=== PATIENT | male | born 1955 | race Caucasian/White ===

== ENCOUNTER 2016-12-03 18:25 | Inpatient (IN) | payer MEDICAID, OTHER ==
[~2016-12-03] VITALS: Ht 177.8 cm; Wt 81.2 kg
[~2016-12-03 18:25] MED LIST: FLUO20CA25 PO; KLO5T PO; OXYC-284 PO
[2016-12-03 18:27] VITALS: BP 134/97; PULSE 70; RESP 20; O2SAT 94
--- NOTE | 2016-12-03 19:09 | ED.REPORT ---
HPI-Psychiatric Illness Date of Service Dec 03, 2016 ED Provider: Sharif Valdez MD A 61 year old male with a medical history including depression, suicidal ideation, diverticulitis, and SBO s/p previous psychiatric admission presents to the ED with suicidal ideation onset one month ago, worsening today. The patient reports a plan to slit his wrists. He attributes a portion of his suicidality to anxiety over problems with his former spouse and stress about an upcoming move. The patient denies other symptoms. He has a previous suicide attempt via asphyxiation in his car. The patient denies recent drug or alcohol use. Nursing Notes Stated Complaint: SUICIDAL Chief Complaint: Psychiatric Complaint Nursing Notes Reviewed: Yes Allergies: Coded Allergies: No Known Allergies (Verified Allergy, Unknown, 05/14/15) Scheduled Fluoxetine (Fluoxetine) 20 Mg Capsule 20 MG PO DAILY Scheduled PRN Clonazepam (Clonazepam) 0.5 Mg Tablet 0.5 MG PO BID PRN PRN For Anxiety Oxycodone HCl/Acetaminophen 5-325 (Percocet 5-325) 1 Each Tablet 1 TABLET PO q6 PRN PRN For Pain General Time Seen by MD: 18:41 Chief Complaint Suicidal ideation Hx Obtained From: Patient Arrived By: Walk-in Onset Occurred: More than a week ago... (One month ago, worsening today) Symptom Duration: Since onset Severity: Current: No pain currently Severity: Maximum: No pain Pertinent Negative: Pt denies other symptoms Pertinent Negative: Relieved by nothing Related History: Reports: Depression, Prior suicide attempt(s) Immunizations: Unknown Recent Healthcare: No recent doctor visit Similar Sx Previous: Yes Risk-Psychiatric Illness Suicide Risk Stratification RF Statements: Risk factors reviewed Past Medical History Past Medical History Depression Suicide attempt by asphyxiation in car Diverticulitis SBO Chronic back pain Past Surgical History Inguinal Hernia surgery Knee surgery in 1995 Sinus Surgery Family History Diabetes Dad of a [place] at 82 Smoking History Current Every Day Smoker, Light Tobacco Smoker Social History Alcohol Use: Denies alcohol use Drug Use: Denies drug use Other Social History: Ambulatory Status Independent Review of Systems Constitutional: Denies: Fever Respiratory: Denies: Non-productive cough, Shortness of breath GI: Denies: Diarrhea, Vomiting Psychiatric: Reports: Anxiety, Stress, Suicidal ideation Complete sys rev & neg: except as marked. Physical Exam Initial Vital Signs Vital Signs (First) Date Time Temp Pulse Resp B/P Pulse Ox O2 Delivery O2 Flow Rate FiO2 12/03/16 18:27 36.9 70 20 134/97 94 Room Air Head / Eyes: Atraumatic, Normocephalic ENT: Conjunctiva normal, No scleral icterus Extremities: Vascular intact, Neuro intact, No swelling Skin: Warm, Dry, No cyanosis General/Constitutional: Awake, Alert Neurologic: Oriented X3, Speech NL (Speech is linear and organized), No motor deficits, No sensory deficits Psychiatric: Affect NL, Cognitive function NL Abnormal Thinking / Perception: Positive: Suicidal, with plan (Vague plan) Respiratory / Chest: Breath sounds NL, Breath sounds = bilat, No respiratory distress Cardiovascular: Heart rate NL, Regular rhythm, Heart sounds NL, No gallop, No murmurs, No rubs Interpretation & Diagnostics URINE DRUG SCREEN: Negative BREATHALYZER: Negative URINE DIPSTICK: Bedside Urine Specific [place] * 1.025 Bedside Urine pH * 5 Bedside Urine Leukocyte Esterase * Negative Bedside Urine Nitrite * Negative Bedside Urine Protein * Negative Bedside Urine Ketones * + Small Bedside Urine Urobilinogen * Normal Bedside Urine Bilirubin * Negative Bedside Urine Occult Blood * Trace Urine to Lab * Yes Lab Results Interpretation Result Diagram: 12/03/16194412/03/161944 Test 12/03/16 19:45 White Blood Count 7.3th/mm3 (3.8-10.1) Red Blood Count 4.82mil/mm3 (4.40-5.80) Hemoglobin 14.6g/dL (13.8-17.2) Hematocrit 41.8% (41.0-50.0) Mean Corpuscular Volume 86.7fL (81-100) Mean Corpuscular Hemoglobin 30.3pg (27.0-35.0) Mean Corpuscular Hemoglobin Concent 34.9% (32.0-37.0) Red Cell Distribution Width 13.6% (12.3-15.4) Platelet Count 222bil/L (150-400) Neutrophils (%) (Auto) 65.3% (40-74) Lymphocytes (%) (Auto) 26.9% (14-46) Monocytes (%) (Auto) 6.6% (4-12) Eosinophils (%) (Auto) 0.8% (0-5) Basophils (%) (Auto) 0.3% (0-3) Sodium Level 139mEq/L (134-144) Potassium Level 3.4mEq/L (3.5-5.2) Chloride Level 102mEq/L (97-108) Carbon Dioxide Level 19mmol/L (18-29) Blood Urea Nitrogen 9mg/dL (8-27) Creatinine 0.93mg/dL (0.76-1.27) Estimat Glomerular Filtration Rate 88mL/min (>59) Glucose Level 140mg/dL (60-99) Calcium Level 8.5mg/dL (8.5-10.1) Total Bilirubin 0.4mg/dL (0.0-1.2) Aspartate Amino Transf (AST/SGOT) 12U/L (0-50) Alanine Aminotransferase (ALT/SGPT) 11U/L (0-44) Alkaline Phosphatase 106U/L (25-160) Total Protein 6.6g/dL (6.4-8.4) Albumin 3.8g/dL (3.4-5.0) Thyroid Stimulating Hormone (TSH) 0.478uIU/mL (0.450-4.500) Re-Eval/Medical Decision Med Decision/Clinical Course A 61 year old male with a medical history including depression, suicidal ideation, diverticulitis, and SBO s/p previous psychiatric admission presents to the ED with suicidal ideation onset one month ago, worsening today. The patient reports a plan to slit his wrists. He attributes a portion of his suicidality to anxiety over problems with his former spouse and stress about an upcoming move. The patient denies other symptoms. He has a previous suicide attempt via asphyxiation in his car. The patient denies recent drug or alcohol use. Here in the emergency department the patient is afebrile stable vital signs. He reports suicidal ideation/patient plan that was otherwise in no apparent distress. He reported anxiety and asked for antianxiety medication. I administered Vistaril. URINE DRUG SCREEN: Negative BREATHALYZER: Negative Labs: CMP unremarkable CBC unremarkable TSH within normal limits At this time, I see no evidence of acute medical etiology of the patient's suicidal ideation. No evidence of head trauma, no evidence of toxicologic causes of this presentation, denies ingestion, alcohol negative, no significant electrolyte abnormalities and TSH within normal limits. From medical standpoint I do not feel that further immediate workup is indicated. No focal neurologic deficits, headache or trauma which required neuroimaging. Patient was seen and evaluated by a director social and was felt that he may benefit from admission. Patient was discussed with psychiatry service and he was accepted for further management. He was transferred in stable condition. Re-Evaluation/Progress : Time of Eval: 21:31 Patient Status: Condition improved Re-Evaluation/Progress Note: Patient was seen and admitted by Social Work, who discussed with patient lab results, diagnosis, and plan for admission. Patient agrees with plan for care and all questions were addressed. Consultation #1: Consulted With: dish room worker Call Returned at: 19:48 Decorating Inspector: Agrees with eval, Agrees with plan Consultation #2: Consulted With: dish room worker Call Returned at: 21:31 Decorating Inspector: Agrees with eval, Agrees with plan, Accepts admit Note: Patient has been admitted. Counseled Regarding: Diagnosis, Lab results, Need for admission Discharge & Departure Impression: Primary Impression: Suicidal ideation Additional Impression: Acute situational disturbance Disposition: ADMITTED TO HOSPITAL Discharge Condition All VS Reviewed: Yes Condition: Improved Referrals: NOPCP (PCP) Scribe Attestation Portions of this note were transcribed by Ladonna Neil. I, Dr. Valdez, personally performed the history, physical exam, and medical decision-making; I reviewed and confirmed the accuracy of the information in the transcribed note. Signed by: Diego Qureshi, 12/03/2016, 23:05 Sharif Valdez MD Dec 03, 2016 19:09 LADONNA NEIL Dec 03, 2016 19:50
[2016-12-03 19:54] LABS: BASOPHILS % (AUTO) 0.3 % (0-3); EOSINOPHILS % (AUTO) 0.8 % (0-5); MONOCYTES % (AUTO) 6.6 % (4-12); Mean Corpuscular Hemoglobin 30.3 pg (27.0-35.0); Mean Corpuscular Volume 86.7 fL (81-100); NEUTROPHILS % (AUTO) 65.3 % (40-74); Platelet Count 222 bil/L (150-400)
[2016-12-03] MEDS ORDERED: hydrOXYzine Pamoate 25 mg Capsule PO ONE (20:10)
[2016-12-03 22:49] VITALS: BP 129/88; PULSE 72; RESP 20; O2SAT 96
[2016-12-03] MEDS ORDERED: Alum-Mag Hydrox-Simeth 30 mL Suspension PO PRN (23:35)
[2016-12-03] MEDS ORDERED: Magnesium Hydroxide 10 mL Oral Concentration PO PRN (23:35)
[2016-12-03] MEDS ORDERED: Benzocaine-Menthol Lozenge 2/Pkg PO PRN (23:35)
[2016-12-03 23:43] VITALS: BP 129/88; PULSE 72; RESP 20; O2SAT 96
[2016-12-04] MEDS: LORazepam 1 mg Tablet PO PRN ×5 (00:03→18:27)
--- NOTE | 2016-12-04 01:03 | NUR ---
Nursing Admission Note Pt is a 61 y/o White retired, , male who presented to the ED with SI and plan to cut his wrists. He was admitted voluntarily to [facility] and arrived on the floor at 2335. He is certified by Ivelisse Heath for 5 days with a review on 12/07/16. Pt has had 3 voluntary admission to this unit, last in Apr 2015 after a suicide attempt in which he attempted to asphyxiate himself in his car. Pt reports he has had increased depression and anxiety, low appetite and increased need for sleep in the last few months. He was visiting his ex- and grandson this evening and after the visit began feeling hopeless and helpless. He expressed to her I feel like I have nothing to live for and had thoughts of going home and cutting his wrists. She instructed him to go to the ED instead of going home. Pt has not been on psychotropic medications since he was discharged but takes Percocet 5/325 1 tab Q6 hours prn for pain since a back injury on the job in 2014. Pt denies any medical issues, vital signs are stable. Labs unremarkable with the exception of a low K+ 3.4 and Glucose of 140, UDS neg. Pt denies use of ETOH or Substances. Pt currently lives in a trailer on his [address] property in [place]. Pt reports triggering events are pending homelessness I cant stay at my [facility], and feelings of loneliness and isolation. He is currently unemployed and lives on social security. He reports he started counseling at [facility] but did not follow through. He is pleasant, calm and cooperative, given a sandwich and oriented to the unit. Pt reports he feels safe here on the unit and currently denies SI and agrees to inform staff if he has thoughts of self-harm. Pt reports lower back pain of 7/10, offered ibuprofen or Tylenol but declined both stating I will wait to see the MD in the am and see if he will give me my Percocet. Pt given Ativan 1mg prn and Ambien 5mg prior to bed. Pt signed consent for treatment and admission paperwork. Admission complete.
--- NOTE | 2016-12-04 01:24 | NUR ---
Observations 1900 to 0700 Pt arrived on the floor at 23:35 form our ED and was able to complete the entire intake process. Pt was polite and cooperative. pt had a snack before going to his room for the night. Pt first appeared asleep at 00:30 and was observed every 15 minutes through the night as directed.
--- NOTE | 2016-12-04 05:51 | NUR ---
Nursing Note Marketing Team Lead 11pm to 7am Pt retired to bed area at 0030 and slept uninterrupted the duration of the shift. Monitored pt q 15 minutes for safety location and accountability.
[2016-12-04] MEDS ORDERED: Benzocaine-Menthol Lozenge 2/Pkg PO PRN (10:30)
--- NOTE | 2016-12-04 11:52 | NUR ---
Nursing Note [id number] Behavior, Medications S/O: Pt out of room for breakfast for breakfast & groups. Pt at nursing station at 1015. He stated he was "anxious" rating his anxiety at a "5 or 6 or 7" on a scale of 1-10/10 the worst. Pt rated his depression at an "8." Ativan 1 mg given at 1020. Conversation tracking clear & organized with normal rate & rhythm. Pt became extremely irritated & began yelling at another pt who intentionally bumped into him. He again started yelling at the same pt at lunch time. A: Pt is easily irritated & unable to control feelings. He con't to be depressed & anxious. P: Provide supportive environment. Monitor medications & effects. Monitor interactions with peers. Addendum: 12/04/16 at 1351 by MONI MOTA RN Pt requested Ativan 1 mg & Percocet 5 mg for pain at a "8" on a scale of 1-10/10 the worst & anxiety. Given at 1345. Pt currently resting in room.
[2016-12-04] MEDS: oxyCODONE-Acetamin 5-325 mg Tablet PO PRN ×3 (13:36→21:51)
--- NOTE | 2016-12-04 14:35 | NUR ---
Mechanical Systems Engineer./ c.m. S.:"I'm tired, depressed." O.: met with pt. for initial interview. Pt. is vol. This is his 5th psych. hospitalization. He was in bed resting/sleeping in the middle of the morning. He got up and agreed to talk to the staff writer. He is not connected with medical or mental health services at this time. He lives in his trailer on his niece's property. "She is very nice to me." He can go back home after his discharge from here. He said that he "was working" on getting services at [facility]. He denied SI/HI, denied AH/VH, denied paranoid/delusional thoughts. He said that his "mind was going very fast" and he had difficulty concentrating. He rated depression at 8/10 and anxiety at 8/10. He was in and out of his room. A.: pt. is cooperative, quiet, comfortable in the hospital. P.; monitor behavior, engage pt. in the program activities, monitor for safety, follow care plan.
[2016-12-04 15:31] VITALS: BP 117/66; PULSE 84; RESP 16
--- NOTE | 2016-12-04 16:17 | NUR ---
Obs Dayshift Pt spent most of the day in his room in bed. Pt stated that he was tired and was hoping to catch up on a little sleep since he didn't get to the unit until very late. Pt did attend Comm Meeting and dog group. Pt is polite, tired, appears sad, hopeless. Pt became upset w/ a peer, was told that he wasn't aloud to sit at the table and eat w/ him. Pt took his meal to his room upset that he had to leave and not the other person. Pt is Oriented Ok ADL's, Good meals
--- NOTE | 2016-12-04 19:07 | HP ---
[address] [address] HISTORY AND PHYSICAL PATIENT: JUAN A HOWE : 1955 MR#: [id number] ADMIT: 12/03/2016 JOB ID: [id number] IDENTIFICATION: The patient is a 61-year-old, white male, currently living alone in a trailer on his niece's property. 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 REASON FOR ADMISSION: Client came to the ER on a voluntary basis complaining of suicidal ideation with a plan to cut his wrist. He states, "If I go home, I know I will do it." HISTORY OF PRESENT ILLNESS: The patient presents today for evaluation and treatment of suicidal ideation. I met with him for a 60-minute session and reviewed course and records kept by [facility]. I discussed the case with the treatment team. His main issue at this time is depression. The condition is chronic and has been developing over the past decade. At present, it is of a severe intensity, manifesting with suicidal ideation, poor sleep, interest, appetite, concentration, high guilt, low energy. All of the above is made worse by poor sleep and interpersonal relationship conflicts. He spent the weekend with his ex- and this seems to be the trigger. He is reminiscing about past mistakes and feeling helpless, hopeless, and that suicide is the only answer. He is currently presenting with no emotional lability but impaired judgment, insight, and coping. His reality testing is intact and he is showing no cognitive deficits. PSYCHIATRIC REVIEW OF SYSTEMS: Negative for leydi, psychosis, anxiety, trauma or substance abuse. PHYSICAL REVIEW OF SYSTEMS: Constitution: Feeling poorly. Musculoskeletal: Client has severe back pain. Cardiac, respiratory, GI and general urinary systems were normal. PAST MEDICAL HISTORY: MEDICATIONS: 1. Klonopin 0.5 b.i.d. as needed. 2. Percocet 5/325 q.6 h. as needed for back pain. 3. Prozac 20 mg daily. ALLERGIES: None. ILLNESSES: Diverticulitis, back pain. Client reports ruptured disk requiring surgery but he is holding off as long he can. FAMILY MEDICAL HISTORY: Noncontributory. Father of a myocardial infarction at 82. PAST PSYCH HISTORY: Client's been admitted on a voluntary basis to [facility] three times. One in November 2013, October 2014, and April 2015. He has been following with [facility] in [place] but has stopped over the past year. PSYCHOSOCIAL HISTORY: Client born and raised in the [facility]. He graduated from high school and had a year of college at [employer]. 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 HISTORY OF TRAUMA: Client denies. DRUG AND ALCOHOL: Client denies. LETHALITY: Client describes suicide attempt by trying to kill himself with carbon monoxide poisoning. Client currently had suicidal ideation to cut his wrists. RELATIONSHIP HISTORY: Client has been and twice, first in 1996. Second marriage: He is not legally . He has one boy, age 26. PROTESTANT: Taoism. LEGAL HISTORY: None. PHYSICAL EXAMINATION: Well-hydrated, well-developed. Normal gait, normal balance. Vital signs: Within normal limits. MENTAL STATUS EXAMINATION: Client neatly dressed. Good eye contact. Calm and cooperative. Speech: Normal rate and rhythm. Mood: Dysphoric. Affect: Congruent, flat and blunted. Thought process: Client is able to relate a coherent history. His thought process is somewhat concrete and he sees suicide as the only option. He showed no signs of psychosis and no neurovegetative signs of depression. Thought content: Themes of helplessness, hopelessness. He is ruminating on past failures. He denied symptoms of delusions or psychosis. Client alert and oriented to person, place, and date. Immediate short- and long-term memory intact. Attention and concentration only mildly impaired. Insight and judgment poor. Impulse control: Highly contained yet rigid. Has a difficult time handling impulses of fear, sadness, and guilt. Reality testing intact. Competence to handle current stressors is currently being overwhelmed. IMPRESSION: The patient is a 61-year-old, white male, who has been essentially twice and is currently socially isolated, living in a trailer and his niece's property. He had been a devout Taoism in the past but is no longer attending any type a orthodox community. He is struggling with symptoms of back pain, anxiety and depression, all of which have overwhelmed him to the point where he saw suicide as the only option. He does have a previous suicide attempt and was set on ending his life last night when he came into the ER. DIAGNOSES: [place] I. 1. Depression, unspecified. 2. Rule out major depressive disorder. 3. Rule out adjustment disorder with depressed mood and suicidal ideation. [place] II. Defer. [place] III. Back pain with reported impairment of lumbar disks. [place] IV. Moderate. [place] V. Current Global Assessment of Functioning equal to 35. PLAN: Recommend client be admitted to our unit and be provided with a high degree of safety through the structure and active adult engagement he will receive here. Will have him participate in one-to-one unit and group activities focused on improving coping skills, reality based thinking and helping him come up with a safety plan, should suicidal ideation return as an outpatient. Will be continued on Klonopin, Percocet, and Prozac as per outpatient recommendations. Anticipate five-day stay. Client is currently voluntary.
--- NOTE | 2016-12-04 20:54 | NUR ---
nursing note evening shift S)"I was here two years ago" O)pt reports anxiety 04/04 requesting Ativan given with some relief, states depression 10/05 and states no thoughts of harming self, slept most of this shift came out for meals, pleasant cooperative needs shower, taking pain medication for chronic back pain A)anxiety, poor hygiene, cooperative P) monitor medication effectiveness, encourage shower in am
[2016-12-05] MEDS: LORazepam 1 mg Tablet PO PRN ×4 (00:41→23:53)
--- NOTE | 2016-12-05 01:16 | NUR ---
Observations 1900 to 0700 Pt was in his room for most of the night. Pt came out on a few occasions for food or some meds. Pt first appeared asleep at 22:15 and was observed every 15 minutes through the night as directed.
--- NOTE | 2016-12-05 04:48 | NUR ---
Nursing Noc Pt up and to DR requesting available PRNs for anxiety and lower back pain. Pt talkative carrying conversation, smiling. Denies SI and reports good control of anxiety and pain with available PRNs. Continuing to monitor mood behavior and emotional state. CP Addendum: 12/05/16 at 0602 by FAHAD GARCIA RN Sleep Pt has had broken sleep of 4 hours. He continues to complain of pain and anxiety despite receiving both Percocet and Ativan during the night.
[2016-12-05] MEDS: oxyCODONE-Acetamin 5-325 mg Tablet PO PRN ×3 (06:37→19:41)
--- NOTE | 2016-12-05 12:11 | PCM.PNPSY ---
Subjective Date of Service Dec 05, 2016 Subjective I spent 30 minutes both reviewing his treatment plan and providing supportive and educational psychotherapy. I spent more than 50% of the time counseling the patient. I reviewed the treatment plan with the patient and discussed options available including the potential risks, benefits and side effects. He and I are working to identify triggers that will resulted in depression suicide and anxiety intensifying. Anjum reports a decrease in intensity of the suicidal ideation that brought him into but is feeling markedly anxious and requesting medications. The Staff reports that he has been active polite and is participating well in one-to-one unit and group activities. He slept four hours at night however he naps frequently during the day likely getting a total of 10 hours a day. He denies medication side effects. Patient was able to identify his medications and what they were used to treat. He appeared to understand the need for medications by the questions he asked during our discussion. Current Medications Current Medications Calcium Carbonate START WITH 500MG, IF ... Q6H PRN PO Last administered on 12/04 06:14; Admin Dose 500 MG; Start 12/03/16 at 23:35 Clonazepam 0.5 mg BID PRN PO Last administered on 12/05/16 11:06; Admin Dose 0.5 MG; Start 12/04/16 at 10:25 Fluoxetine HCl 20 mg DAILY PO Last administered on 12/05/16 07:58; Admin Dose 20 MG; Start 12/04/16 at 10:25 Hydroxyzine Pamoate 25 mg ONCE ONCE PO Last administered on 12/03/16 20:34; Admin Dose 25 MG; Start 12/03/16 at 20:10; Stop 12/03/16 at 20:11; Status DC Lorazepam 1 mg Q4H PRN PO Last administered on 12/05/16 07:58; Admin Dose 1 MG ; Start 12/03/16 at 23:35 Oxycodone/ Acetaminophen 1 tab q6 PRN PO Last administered on 12/05/16 06:37; Admin Dose 1 TAB; Start 12/04/16 at 10:25 Zolpidem Tartrate START WITH 5 MG AND MAY REP... HS PRN PO Last administered on 12/05/16 00:30; Admin Dose 5 MG; Start 12/03/16 at 23:35 Mental Status Exam Appearance: Neat/well groomed Attitude: Pleasant, Cooperative Behavior: No unusual behavior Affect: Well Modulated/Appropriate Mood: Dysthymic, Anxious Thought Process/Associations: Logical/Sequential, Goal Directed Speech Production: Normal Speech Rate: Normal Speech Articulation: Normal Thought Content: Guilt, Perseveration Danger to Self/Suicidal Ideati: Active (she reports a marked decrease in intensity of suicidal ideation) Danger to Others: None Consciousness: Alert Orientation: Person, Place, Date, Situation Memory: Grossly Intact Estimate Intellectual Function: Above Average Basis for IQ estimate: Awareness current events Attention/Concentration & Cogn: Grossly Intact Insight: Good Judgement: Limited Result Diagram: 12/03/16194412/03/161944 Mental Health Plan The patient is a 61-year-old, white male, who has been essentially twice and is currently socially isolated, living in a trailer and his niece's property. He had been a devout [employer] in the past but is no longer attending any type a cheondoism community. He is struggling with symptoms of back pain, anxiety and depression, all of which have overwhelmed him to the point where he saw suicide as the only option. He does have a previous suicide attempt and was set on ending his life last night when he came into the ER. Today he is feeling a decrease in intensity of suicidal ideation. His anxiety however Has increased and he struggling to maintain emotional stability. He was able to identify Being with his ex- and reminiscing about his losses and life is one of the sources Of upset that drove suicidal ideation. Reno Reno I. 1. Depression, unspecified. 2. Rule out major depressive disorder. 3. Rule out adjustment disorder with depressed mood and suicidal ideation. Reno II. Defer. Reno III. Back pain with reported impairment of lumbar disks. Reno IV. Moderate. Reno V. Current Global Assessment of Functioning equal to 35. Treatments Patient is being provided with a high degree of safety through the structure and active adult engagement. We will focus on developing improved coping skills and identifying stressors that may have led to current episode. We will attempt to: Integrate into therapeutic groups, milieu and individual therapy. Maintain in a closely monitored and structured unit Provide low-stimulation environment Obtain collateral data to assist in treatment planning Assess degree of lability of affect and impulse control Complete safety plan Decrease frequency of relapse and need for re-hospitalization Denies thoughts of harm to self Establish a consistent sleep pattern Medication effective in stabilization of mood and/or thought process Reduce the risk of imminent harm to self and/or others by providing a safe environment Tolerates medication without side effects Patient will be on the following psychiatric medications: Prozac 20 daily Klonopin 1 mg twice a day BuSpar 10 mg twice a day Address patient's legal status Voluntary Disposition: Home Galdino Duncan MD Dec 05, 2016 12:11 involuntary treatment hold. 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
[2016-12-05 15:43] VITALS: BP 120/80; PULSE 100; RESP 16
--- NOTE | 2016-12-05 16:53 | NUR ---
Nursing Day Shift- S- "Can I get My Percocet yet? Am I due for Ativan?" O- Pt. had slept only 4 hours per report. He attended meals and eat well. He requested PRN Percocet for chronic back pain rated 7/10, and Klonopin for anxiety rated 7/10. He was able to contract for safety on the unit, and denied thoughts of self harm. A- Anxiety and chronic pain. Poor sleep. P- Cont. bHTP.
[2016-12-05] MEDS: BusPIRone 15 mg Dividose Tablet PO SCH ×2 (17:00→17:09)
--- NOTE | 2016-12-05 17:03 | NUR ---
Counseling/Consumer Insight Manager: S/O: Patient slept 4 hours of broken sleep last night per staff. He denies S/I and H/I. He denies auditory an visual hallucinations. Depression and anxiety was not noted. When asked his mood, patient stated, "I'm in good shape today." Patient is obsessing about his ex- whom he broke up with 1 year ago. A: Patient is cooperative, pleasant, dysthymic, anxious, limited judgment. P: Follow care plan, coordinate out-patient providers and JEREMY.
--- NOTE | 2016-12-05 18:14 | NUR ---
OBSERVATIONS DAY Pt participated in guided relaxation group. Pt split time between room and common areas. Pt was pleasant and appropriate with peers and staff.
--- NOTE | 2016-12-05 18:29 | NUR ---
NURSING NOTE [id number] Mood: "I think I'm coming out of it" *smiles* Affect: pleasant upon approach, otherwise mostly flat Behavior: mostly spending time in his room, resting in bed w/eyes open. He requested PRN for anxiety 02/02 at 17:15 and received 1 mg Ativan. He refused his scheduled 1700 dose of Buspar at that time reporting "I was on that 30 years ago, it really messed me up". Pt. did report he is amenable to continue taking his scheduled Prozac which he takes in the a.m. Thought processes: denies SI/HI/AH/VH. Reports "my main issues are my anxiety and my pain".
--- NOTE | 2016-12-05 19:42 | NUR ---
PRN Medication Pt c/o low back pain in L3-4 region rated 8/10. He requested and received his HS medication a half hour early along with pain medication. Will reassess pain and medication efficacy within an hour.
[2016-12-06] MEDS: oxyCODONE-Acetamin 5-325 mg Tablet PO PRN ×4 (01:26→20:47)
--- NOTE | 2016-12-06 03:09 | NUR ---
nursing, nights, 11-7 s- i had a nightmare. like a shot out of the blue. my back pain. it helps. thank you. o- has appeared to sleep after 2200. up with a nightmare at 2350 and received 1 mg of ativan. rapidly returned to sleep. up at 0125 with back pain and further difficulty sleeping. received a percocet and repeat 5 mg of ambien. has appeared to sleep after 0145. assessed q 15 minutes. a- inadequate/interrupted sleep, medication helpful, no apparent distress. p- monitor behavior/emotional state, quality, times and amount of sleep, use and effect of medication. mitul
--- NOTE | 2016-12-06 03:15 | NUR ---
Nursing Noc Pt continues to request and receive pain and anxiety medicine. Noted to be out on unit for short periods, but mostly isolating to room. Pleasant and cooperative, smiling and interacting with staff appropriately. Denies SI this shift. Continuing to monitor mood, behavior,and emotional state. CP
[2016-12-06] MEDS: LORazepam 1 mg Tablet PO PRN ×4 (03:51→20:44)
[2016-12-06] MEDS: BusPIRone 15 mg Dividose Tablet PO SCH ×2 (09:00→17:00)
[2016-12-06 09:20] VITALS: BP 118/98; PULSE 82; RESP 16
--- NOTE | 2016-12-06 10:35 | NUR ---
Nursing Day Shift- S- "My depression is about a 5. It's slowly getting better. I'm thinking about and planning to move my trailer." O- Pt. was awake for breakfast. He requested and received Ativan at 0800 for anxiety rated 8/10. He requested and received Percocet at 0830 for pain rated 8/10. He reported wanting to medicate pain when it is 2/10. A- Depression decreasing. Anxiety and pain ongoing. P- Cont. BHTp.
--- NOTE | 2016-12-06 12:36 | PCM.PNPSY ---
Subjective Date of Service Dec 06, 2016 Subjective I spent 30 minutes both reviewing his treatment plan and providing supportive and educational psychotherapy. I spent more than 50% of the time counseling the patient. He and I continued working to identify triggers that will resulted in depression suicide and anxiety intensifying. Anjum reports a decrease in intensity of the suicidal ideation that brought him into and is also feeling less anxious. The Staff reports that he has been active polite and is participating well in one-to-one unit and group activities. He slept 6 hours at night. He smiled and laughed frequently during the session and appears to be recovering. He reports his depression level as 5 out of 10 and anxiety 6 out of 10. He denies medication side effects. Current Medications Current Medications Clonazepam 1 mg 1330,21 PO Last administered on 12/05/16t 19:41; Admin Dose 1 MG ; Start 12/05/16 at 13:30 Mental Status Exam Appearance: Neat/well groomed Attitude: Pleasant, Cooperative Behavior: No unusual behavior Affect: Well Modulated/Appropriate Mood: Dysthymic Thought Process/Associations: Logical/Sequential, Goal Directed Speech Production: Normal Speech Rate: Normal Speech Articulation: Normal Thought Content: Guilt, Perseveration Danger to Self/Suicidal Ideati: Active (he reports a marked decrease in intensity of suicidal ideation) Danger to Others: None Consciousness: Alert Orientation: Person, Place, Date, Situation Memory: Grossly Intact Estimate Intellectual Function: Above Average Basis for IQ estimate: Awareness current events Attention/Concentration & Cogn: Grossly Intact Insight: Good Judgement: Limited Result Diagram: 12/03/16194412/03/161944 Mental Health Plan The patient is a 61-year-old, white male, who has been essentially twice and is currently socially isolated, [place] and his niece's property. 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 He is struggling with symptoms of back pain, anxiety and depression, all of which have overwhelmed him to the point where he saw suicide as the only option. He does have a previous suicide attempt and was set on ending his life last night when he came into the ER. He was able to identify Being with his ex- and reminiscing about his losses and life is one of the sources Of upset that drove suicidal ideation. He is working on a safety plan with me. He believes the medications are at an appropriate level even though he continues to have symptoms of both Anxiety and depression. Ovid Ovid I. 1. Depression, unspecified. 2. Rule out major depressive disorder. 3. Rule out adjustment disorder with depressed mood and suicidal ideation. Ovid II. Defer. Ovid III. Back pain with reported impairment of lumbar disks. Ovid IV. Moderate. Ovid V. Current Global Assessment of Functioning equal to 35. Treatments Patient is being provided with a high degree of safety through the structure and active adult engagement. We will focus on developing improved coping skills and identifying stressors that may have led to current episode. We will attempt to: Integrate into therapeutic groups, milieu and individual therapy. Maintain in a closely monitored and structured unit Provide low-stimulation environment Obtain collateral data to assist in treatment planning Assess degree of lability of affect and impulse control Complete safety plan Decrease frequency of relapse and need for re-hospitalization Denies thoughts of harm to self Establish a consistent sleep pattern Medication effective in stabilization of mood and/or thought process Reduce the risk of imminent harm to self and/or others by providing a safe environment Tolerates medication without side effects Patient will be on the following psychiatric medications: Prozac 20 daily Klonopin 1 mg twice a day Address patient's legal status Voluntary Disposition: Home, anticipate additional 72 hours of treatment. Galdino Duncan MD Dec 06, 2016 12:36
--- NOTE | 2016-12-06 17:33 | NUR ---
Counseling/Neon Glass Blower: S/O: Patient slept 6 hours last night per staff. He denies S/I and H/I. He denies auditory an visual hallucinations. Depression and anxiety was not noted. When asked his mood, patient stated, "I'm doing okay today." A: Patient is cooperative, pleasant, dysthymic, anxious, limited judgment. P: Follow care plan, coordinate out-patient providers.
--- NOTE | 2016-12-06 20:02 | NUR ---
Observations 0900 to 2130 Pt affect and mood was flat and anxious. Pt speech and eye contact was ok. Pt was in his room most of the shift. Pt came out of room for meals and snack and attended meals in D.R. Pt had a good appetite and ate 100% of his meals and snack. Pt maintained behavior throughout the shift. Pt was polite and cooperative. Pt refused going to afternoon groups and unit activities. Pt attended morning community meeting and set a daily goal "to feel better" Pt was incontinent in the afternoon and pushed call light to ask for clean scrubs. Pt took a shower and attended to ADL's. Pt was observed every 15 minutes throughout the shift as ordered.
--- NOTE | 2016-12-06 22:41 | NUR ---
NURSING NOTE [id number] Mood: "a little anxious after I woke up from my nap... I was dreaming about renovating houses and I guess I got anxious because I can't do that no more" *chuckles* Affect: neutral, pleasant when engaged in conversation Behavior: mostly isolating to room this shift but came out to request various PRNs for anxiety and pain (asking for another anxiety PRN 1 hr after administering his q4h PRN Ativan) and for his meal. He took a shower. Refused his Buspar at 1700 because per his report he reacted poorly to it in the . Otherwise med compliant. Requested Percocet PRN @ HS for 9/10 back pain. Thought processes: reports his depression has improved here on the unit, continues to endorse chronic anxiety, denies SI/HI/AH/VH. No disturbed thought content noted.
[2016-12-07] MEDS: LORazepam 1 mg Tablet PO PRN ×6 (00:32→23:11)
[2016-12-07] MEDS: oxyCODONE-Acetamin 5-325 mg Tablet PO PRN ×4 (03:30→20:52)
--- NOTE | 2016-12-07 03:42 | NUR ---
Nursing Noc Pt pleasant and cooperative. Carrying conversation smiling. Reports continues periods of anxiety and chronic pain. Denies Si/Hi, or A/V hallucinations. Noted to awake approximately every four hours. Ambulating safely independently. Good PO intake.
[2016-12-07] MEDS: BusPIRone 15 mg Dividose Tablet PO SCH ×2 (07:48→19:07)
--- NOTE | 2016-12-07 12:17 | PCM.PNPSY ---
Subjective Date of Service Dec 07, 2016 Subjective I spent 30 minutes both reviewing his treatment plan and providing supportive and educational psychotherapy. I spent more than 50% of the time counseling the patient. He and I continued working to identify triggers that will resulted in depression suicide and anxiety intensifying. Anjum reports a decrease in intensity of the suicidal ideation that brought him into and is also feeling less anxious. He is feeling more hopeful for his life. He realizes that he needs to either get actively involved with the pain clinic or follow through with back surgeries as his current use of Percocet and benzodiazepines cannot be sustained. The Staff reports that he has been active polite and is participating well in one-to-one unit and group activities. He slept 7 hours at night. He smiled and laughed frequently during the session and appears to be recovering. He reports his depression level as 5 out of 10 and anxiety 6 out of 10. He denies medication side effects. Current Medications Current Medications Clonazepam 1 mg 1330,21 PO Last administered on 12/06/16t 20:25; Admin Dose 1 MG ; Start 12/05/16 at 13:30 Mental Status Exam Appearance: Neat/well groomed Attitude: Pleasant, Cooperative Behavior: No unusual behavior Affect: Well Modulated/Appropriate Mood: Anxious Thought Process/Associations: Logical/Sequential, Goal Directed Speech Production: Normal Speech Rate: Normal Speech Articulation: Normal Thought Content: Guilt, Perseveration Danger to Self/Suicidal Ideati: Active (he reports a marked decrease in intensity of suicidal ideation) Danger to Others: None Consciousness: Alert Orientation: Person, Place, Date, Situation Memory: Grossly Intact Estimate Intellectual Function: Above Average Basis for IQ estimate: Awareness current events Attention/Concentration & Cogn: Grossly Intact Insight: Good Judgement: Limited Result Diagram: 12/03/16194412/03/161944 Mental Health Plan The patient is a 61-year-old, white male, who has been essentially twice and is currently socially isolated, living in a trailer and his niece's property. 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 He is struggling with symptoms of back pain, anxiety and depression, all of which have overwhelmed him to the point where he saw suicide as the only option. He does have a previous suicide attempt and was set on ending his life last night when he came into the ER. He was able to identify Being with his ex- and reminiscing about his losses and life is one of the sources Of upset that drove suicidal ideation. He is working on a safety plan with me. He believes the medications are at an appropriate level even though he continues to have symptoms of both Anxiety and depression. Anjum is made significant progress over the past 48 hours. If he continues to improve when anticipate discharge Early next week Saturday or Saturday. Client will need a safety plan and a referral to a pain clinic. Whitewright Whitewright I. 1. Depression, unspecified. 2. Rule out major depressive disorder. 3. Rule out adjustment disorder with depressed mood and suicidal ideation. [place] II. Defer. Whitewright III. Back pain with reported impairment of lumbar disks. [place] IV. Moderate. Whitewright V. Current Global Assessment of Functioning equal to 40. Treatments Patient is being provided with a high degree of safety through the structure and active adult engagement. We will focus on developing improved coping skills and identifying stressors that may have led to current episode. We will attempt to: Integrate into therapeutic groups, milieu and individual therapy. Maintain in a closely monitored and structured unit Provide low-stimulation environment Obtain collateral data to assist in treatment planning Assess degree of lability of affect and impulse control Complete safety plan Decrease frequency of relapse and need for re-hospitalization Denies thoughts of harm to self Establish a consistent sleep pattern Medication effective in stabilization of mood and/or thought process Reduce the risk of imminent harm to self and/or others by providing a safe environment Tolerates medication without side effects Patient will be on the following psychiatric medications: Prozac 20 daily Klonopin 1 mg twice a day Address patient's legal status Voluntary Disposition: Home, anticipate additional 72 hours of treatment. Galdino Duncan MD Dec 07, 2016 12:17
--- NOTE | 2016-12-07 14:52 | NUR ---
Counseling/Telehealth Coordinator: S/O: Patient slept 7+ hours last night per staff. He denies S/I and H/I. He denies auditory an visual hallucinations. Depression is 4/10 and anxiety is 6/10 "because it's close to discharge." When asked his mood, patient stated, "Happy, but anxious." A: Patient is cooperative, pleasant, dysthymic, anxious, limited judgment, isolative. P: Follow care plan, coordinate out-patient providers.
--- NOTE | 2016-12-07 15:52 | NUR ---
Nurses PRN Patient requested and received Percocet 1 tab for back pain 04/04,will assess response.
--- NOTE | 2016-12-07 17:23 | NUR ---
Nursing Dayshift: S: "I guess I'm leaving Saturday." O: Patient verbalizing being okay with an extra day here. "This is a safe comfortable place." Has been up much of the shift. Coop with meds. Eating well at meals. Has received prn Ativan for anxiety and Vicodin for pain per eMAR with effectiveness per patient. Social with staff. Anxiety a /10, depression /10 "not much", Denies harmful thoughts and hallucinations. A: Bright affect. P: CPOC. Monitor mood and behavior.
--- NOTE | 2016-12-07 17:28 | NUR ---
Observations 0900 to 2130 Pt affect and mood was flat, isolative and anxious. Pt speech and eye contact was ok. Pt was in his room most of the shift. Pt came out of room for meals and snack and attended meals in D.R. Pt had a good appetite and ate 100% of his meals and snack. Pt maintained behavior throughout the shift. Pt was polite and cooperative. Pt declines to participate in unit activities. Pt keeps to himself and is minimally social with staff and peers when approached. Pt was observed every 15 minutes throughout the shift as ordered.
[2016-12-07 17:50] VITALS: BP 141/91; PULSE 93; RESP 16
--- NOTE | 2016-12-07 19:10 | NUR ---
Nurses Note Evening Patient requested and received Ativan 1mg for increased anxiety. His thoughts have been clear,organized and reality based. He stated he doesn't believe in medications but knew he needed something for his depression. Patient denied feelings of self harm and is problem solving his loneliness. Will maintain q 15min. checks for safety and support.
[2016-12-08] MEDS: LORazepam 1 mg Tablet PO PRN ×5 (03:22→21:37)
[2016-12-08] MEDS: oxyCODONE-Acetamin 5-325 mg Tablet PO PRN ×4 (03:23→21:37)
--- NOTE | 2016-12-08 03:34 | NUR ---
Nursing Note Plasticator - Pt pleasant, calm and cooperative at start of shift but became disgruntled when it was reiterated that he could not have a third snack for the night and when asked to wait for next dose of percocet and ativan. Pt stated in reference to RN " What make that neal think he is better than me. I should have just punched him". Pt reports back pain an 8 and anxiety an 8, denies depressive symptoms and denies SI, plan or intent. Thoughts organized and linear. Focused on medications and woke up multiple times to request prn medications. Pt given Percocet 1 tab at 2100 and 0330, Ativan 1mg at 2315 amd 0330 and Ambien 5mg at 2048 with a repeat at 2316. Monitored q 15 minutes for safety, location and accountability.
[2016-12-08] MEDS: BusPIRone 15 mg Dividose Tablet PO SCH ×2 (08:02→17:44)
--- NOTE | 2016-12-08 11:35 | NUR ---
Children'S Lunchroom Supervisor./ c.m. S.:"I'm getting better." O.: met with pt. and MD to check on his progress. Pt. "slept ok" last night. He denied SI/HI and contracted for safety. He said that his mood was better. He said that meds were "very helpful". He was in and out of his room. He was looking forward to go back to his trailer on his niece property. He also agreed to follow up with outpatient services. A.: pt. is cooperative, pleasant, has a bright affect, looks relaxed. P.: monitor behavior, work on Safety plan, follow care plan.
[2016-12-08 12:00] VITALS: BP 120/80; PULSE 86; RESP 18
--- NOTE | 2016-12-08 12:00 | NUR ---
Nursing Day Shift S: "I retired last May. I would like to work some. I would also like to help people." O: Patient discussing what he has planned after discharge. Talkative on approach. Appears calm and comfortable. Eating well at meals. Rates anxiety at an 8/10 receiving Ativan 1 mg PO at 0801 and again at 1202 with patient verbalizing effectiveness. C/o lower back pain at a 8/10 and received Percocet 5/325 at 0922 with patient verbalizing effectiveness within the hour. Rates depression at an 8/10, and denies harmful thoughts and hallucinations. A: Talkative. Personable. Social. Bright affect. P: CPOC. Monitor mood and behavior.
--- NOTE | 2016-12-08 12:01 | PROG NOTE ---
[address] [address] PROGRESS NOTE PATIENT: JUAN A HOWE : 1955 MR#: [id number] ADMIT: 12/03/2016 JOB ID: [id number] DATE: 12/08/2016 IDENTIFICATION: A 61-year-old gentleman hospitalized voluntarily on this unit December 03, 2016. DIAGNOSES: AXIS I Unspecified depressive disorder, passive dependent traits. AXIS II Nicotine dependence. AXIS III 1. Chronic pain and back pain, for which he is on significant doses of as needed Procrit and Percocet (he got four of them yesterday). 2. He also needed a lot of Ambien to help with sleep, 2 as needed, and Ativan during the day. MEDICATIONS: 1. Prozac 20 mg a day. 2. Clonazepam 1 mg b.i.d. 3. BuSpar 10 mg b.i.d. NARRATIVE: The patient seen and discussed with staff. In a session with me, he says he is getting better. He, according to the staff, has multiple stressors. He is from his . The good thing is that his sleep is better than it was. His intake is good. He is compliant with care. He denies suicidal ideation. No spontaneous delusions or hallucinatory behavior, and he is futuristic. Talks about living with his niece. He is willing to give Percocet some more time for it to kick in. My understanding is that he will be discharged early next week. So, for now, I encouraged him to participate in the treatment modalities of the unit. Encouraged him to minimally use benzodiazepines and opiates. Talked about the tendency to produce respiratory depression with it and dependence with long-term use.
--- NOTE | 2016-12-08 17:18 | NUR ---
OBSERVATIONS 0700 TO 1900 Pt was pleasant and cooperative with staff. Pt was isolative at times, keeping to himself in common areas or in his room but was social when approached/engaged. Pt occasionally becomes agitated when it is time for his pain meds and the nurse is not immediately available or if he feels he is being mislead by staff or staff are talking about him. Even when agitated pt appears to calm quickly. Pt is able to follow and participate in conversation.
--- NOTE | 2016-12-08 22:30 | NUR ---
Nursing Note 7pm to 11pm Pt with bright affect and mood, flirting with female peer. In day room socializing. Pt reports depression and anxiety 4/10, reports pain 8/10 in lower back. Pt has chronic pain. Denies SI plan or intent. Thoughts organized and linear. Eye contact is good and he is future oriented. Pt medicated with percocet for pain at 2140 and given Ambien 5mg for sleep. Pt retired to his room at 0. Addendum: 12/08/16 at 2236 by MARION CORTES RN Amended: Links added.
[2016-12-09] MEDS: LORazepam 1 mg Tablet PO PRN ×5 (01:30→22:31)
--- NOTE | 2016-12-09 02:26 | NUR ---
Observations 1900 to 0700 Pt was in his room for most of the night. Pt came out on a few occasions for food or some meds. Pt first appeared asleep at 22:00 and was observed every 15 minutes through the night as directed.
[2016-12-09] MEDS: oxyCODONE-Acetamin 5-325 mg Tablet PO PRN ×4 (03:12→20:29)
--- NOTE | 2016-12-09 03:56 | NUR ---
Nursing Note 11pm to 7am Pt with interrupted sleep. Awake multiple times seeking percocet and ativan. Pt reports sleep is interrupted due to pain. Received Ambien x2, ativan 1mg po prn x2 and percocelt 1 tab x2. with moderate relief. Monitored pt with q 15 minutes face checks for safety location and accountability.
[2016-12-09 08:45] VITALS: BP 141/86; PULSE 76; RESP 14
[2016-12-09] MEDS: BusPIRone 15 mg Dividose Tablet PO SCH ×2 (08:52→15:29)
--- NOTE | 2016-12-09 09:38 | PROG NOTE ---
[address] [address] PROGRESS NOTE PATIENT: JUAN A HOWE : 1955 MR#: [id number] ADMIT: 12/03/2016 JOB ID: [id number] DATE: 12/09/2016 IDENTIFICATION: This is a 61-year-old, gentleman hospitalized voluntarily on this unit on December 03, 2016. DIAGNOSIS: AXIS I: 1. Unspecified depressive disorder. 2. Passive dependent traits. AXIS II: 1. Nicotine dependence. 2. Significant pain issues in the back. MEDICATIONS: 1. BuSpar 10 mg b.i.d. 2. Clonazepam 1 mg b.i.d. 3. Prazosin 2 mg a day. Patient seen and discussed with staff. Tremendous amount use of p.r.n.'s yesterday. He had a total of 5 Ativan, 2 Ambien at night, got about 7 hours of sleep but was still interrupted. He is possibly going to be discharged tomorrow, and he says that he is stressed out about the day. The process planner is going to talk to him about his discharge planning. My understanding is that he would want to be discharged to a more independent living situation and complains of loneliness, however, an option at this point is a trailer on his niece's property. There is no danger to self or others issues. No overt psychosis. No agitation was noted in the session. I decided to go ahead and reduce the frequency of his Ativan p.r.n. since he is already on clonazepam and then takes the Ambien at night. We talked about relaxation techniques, encouraged him to participate in the treatment modalities of the unit.
--- NOTE | 2016-12-09 10:27 | NUR ---
Double Needle Operator./ c.m. S.:"I'm good today." O.: met with pt. and MD together to discuss pt.'s progress. He denied SI/HI, denied AH/VH or paranoid/delusional thoughts. He described his mood as "pretty good" today. He had interrupted sleep last night because he "worried about" his life. He couldn't specify it - "just in general". He was taking a lot of PRN meds and MD expressed his concern about it. Pt. felt positive about his discharge tomorrow to his trailer on his niece property. He spent a lot of time in his room coming out just for meals and asking for meds. A.: pt. is cooperative, isolative, seeking meds. He has a bright affect and looks relaxed. P.: monitor behavior, work on Safety plan, work on follow up; follow care plan.
--- NOTE | 2016-12-09 14:48 | NUR ---
Nursing Dayshift: S: "If you see me at 3:00 I'll probably be !" O: Patient seeking medication for pain or anxiety at 1300. When told the next doses due were at 3 pm patient made the above statement. Apologized a half hour later and was pleased to receive his 1300 scheduled clonazepam. Has received Ativan 1 mg PO and a Percocet 5/325 both at 0852 with effectiveness per patient. Pain had been an 8/10 and anxiety at a 7/10. Eating well at meals. Pleasant for the most part though requesting meds before they are due. At present anxiety a 7/10 and depression a 6/10. Denies harmful thoughts and hallucinations. A: Talkative on approach. Irritable when not getting meds. P: CPOC. Monitor mood and behavior.
--- NOTE | 2016-12-09 15:30 | NUR ---
Nurses PRN Patient requested and received Ativan 1mg for c/o increasing anxiety,will assess response.
--- NOTE | 2016-12-09 17:06 | NUR ---
Observations 0700 to 1900 Pt affect and mood was flat, isolative and anxious. Pt speech and eye contact was ok. Pt was in his room most of the shift, coming out for meals and wanting meds. Pt attended meals in D.R. Pt had a good appetite and ate 100% of his meals and snack. Pt maintained behavior throughout the shift. Pt was polite and cooperative. Pt declines to participate in unit activities. Pt keeps to himself and is minimally social with staff and peers when approached. Pt attended community meeting, set a daily goal and rated his mood 2/10, with 10 being the best. Pt was observed every 15 minutes throughout the shift as ordered.
--- NOTE | 2016-12-10 04:14 | NUR ---
Nursing Note Care Transition Coordinator Pt visible on unit, pleasant and cooperative. Requested some 1:1 time with this publications writer in which he expressed being concerned about leaving tomorrow." I just don't think I am ready". Pt denies SI, plan or intent, reports depression and anxiety a 6. Discussed safety plan with client and he was able to identify several things that would increase his ability to manage negative thoughts and bring a sense of purpose to his life. " I know I need to get out more, get a pet, make friends and find a tower erector or even volunteer". He went on to say he realizes that his main issue is loneliness and isolation. Pt given ambien 5mg and percocet with HS meds and given ativan 1mg po prn at 2230 with good relief. Pt slept through the night except for getting up for ativan at 2230. Monitoring ongoing.
[2016-12-10] MEDS: LORazepam 1 mg Tablet PO PRN ×2 (05:10→11:00)
[2016-12-10] MEDS: oxyCODONE-Acetamin 5-325 mg Tablet PO PRN ×2 (05:10→11:01)
[2016-12-10] MEDS: BusPIRone 15 mg Dividose Tablet PO SCH (09:25)
[2016-12-10 10:05] VITALS: BP 129/78; PULSE 81; RESP 16
--- NOTE | 2016-12-10 10:38 | PCM.DIMED ---
Discharge Instructions Date of Service Dec 10, 2016 Dates of Hospitalization Dec 03, 2016 at 22:45 Discharge Diagnosis Discharge Diagnosis Major Depression Recurrent Severe Somatoform Pain Disorder Malingering Diet No restrictions Activity No restrictions Nesha Omaresteban Roblero DO Dec 10, 2016 10:38
[2016-12-10] MEDS ORDERED: FLUO20CA25 PO (10:40)
[2016-12-10] MEDS ORDERED: BUSP10TA2 PO (10:40)
--- NOTE | 2016-12-10 13:44 | NUR ---
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 S.:"I'm doing good." O.: pt. completed Safety plan. He denied SI/HI. He has follow up appt. with his PCP, STEPHY Chávez on December 24 @ 11:00 am at [facility] in [facility] ([phone]). He has his car on a hospital parking lot and he will drive himself home to his trailer on his niece property. Pt. continued asking for pain meds. He was recommended to ask his PCP for a referral to a Pain clinic. A.: pt. is cooperative, pleasant, meds seeking, has a bright affect. P.: monitor behavior, follow care plan.
--- NOTE | 2016-12-10 13:55 | NUR ---
Nursing: Day shift: And Discharge. Anjum was in his room most of the shift except for meals and med requests. He requested PRN meds of percocet and Ativan at 0800 only 3 hours after having received them at 0500. He requested these meds again twice before receiving them at 1100. At time of administration, he stated that his pain and anxiety were both "10/10". "I'd like to commit suicide. After seeing that doctor, he put me right over the edge. That creep." Anjum rated depression at 8/10. He slept between finishing lunch and packing to leave at 1330. He voiced that he was upset about the prescriptions he received. "Bupsirone makes me see double. You will be responsible if I get in an accident". "OK. I will sign all your papers and leave now" Anjum did sign all discharge papers and left unit with all belongings at 1355. He was unaccompanied and he planned to drive himself home. Addendum: 12/10/16 at 1430 by MARY ANN ROSE RN Another comment by Anjum as he reviewedhis prescriptions was "How come the doctor didn't prescribe Ativan and percocet this time for discharge. I got them before." Outcomes ongoing at discharge: Safe self care, Brighter affect and Future oriented, Reduced risk for self harm. At 1430, Manifest/Order Organizer Print Orders discussed pt's comments with Dr. Jeffries. He was aware of Anjum's feelings about the prescriptions and discharge.
--- NOTE | 2016-12-11 00:40 | DIS ---
[address] [address] DISCHARGE SUMMARY PATIENT: JUAN A HOWE : 1955 MR#: [id number] ADMIT: 12/03/2016 JOB ID: [id number] DIS: 12/10/2016 ADMITTING DIAGNOSES: Include: AXIS: 1. Depression, not otherwise specified. 2. Rule out major depressive disorder. 3. Rule out adjustment disorder with depressed mood and suicidal ideation. AXIS II: Deferred. AXIS III: Chronic back pain with significant bulging disks. AXIS IV: Moderate. AXIS V: Global Assessment of Functioning current 35. DISCHARGE DIAGNOSES: Include: AXIS: 1. Major depressive disorder, recurrent type, nonpsychotic, severe. 2. Somatoform pain disorder. 3. Probable malingering. AXIS II: Deferred. AXIS III: Chronic pain. AXIS IV: Stressors are noted for disturbance of coping, transition of life, financial difficulties. AXIS V: Global Assessment of Functioning current 50. REASON FOR ADMISSION: Patient was a 61-year-old male who reportedly was admitted after significant concerns of chronic back pain, anxiety and depression, feeling overwhelmed, where he saw suicide as the only option. HOSPITAL COURSE: During the course of hospitalization, the patient did request initiation of medications including Percocet and Klonopin, however, there was concern about the patient's malingering variant with open request multiple times with increasing doses. He was informed consistently by nursing staff that this would not be the case and was encouraged to utilize alternative coping skills. By history, the patient reportedly has a noted long-term history of hospitalizations, this being his fourth hospitalization, with noted previous hospitalizations in November of 2013, October of 2014, April of 2015, with similar circumstances. It was felt the patient did show clear evidence of factors of drug-seeking behaviors and he was encouraged to follow up with appropriate pain clinic possibilities in his local region. On the day of discharge, I met with the patient and informed him that he would not be given prescriptions of Percocet or Klonopin based on suspicion of addiction. He became quite distraught, openly identifying that he could not live life without those medications. He was encouraged to follow up with appropriate pain clinic referrals but has declined. He was willing to agree to a followup with a primary care PA, Dominga Obando at [facility], for ongoing medication management with utilization of Prozac and BuSpar as his primary agents. There was no evidence of significant suicidal ideation, intent, or plan prior to identification that he would not be given his Percocet or Klonopin. It was felt that this was highly manipulative and drug-seeking behavior, and the patient was encouraged, again, to seek out appropriate interventions for chronic pain. CONDITION AT TIME OF DISCHARGE: MENTAL STATUS EXAMINATION: The patient initially was bright, cooperative, interactive. He later became quite distraught and negative with significant negative comments directed toward myself and nursing staff. His speech was neutral. His affect was congruent. His thought process: There was no evidence of racing thoughts, flight of ideas, loose or disconnected thinking. His thought content: He denied any evidence of suicidal ideation, intent, or plan, but did express significant feeling of hopelessness with open identification that he could not live with the pain. The patient was encouraged to seek out appropriate referrals for pain management. He denied any active hallucinations or delusions. He was alert, oriented to person, place. His attention and concentration intact. His memory intact in the short term, senior care, recent. Insight and judgment were poor. DISCHARGE PLANS: Include: 1. Follow up with STEPHY Chávez, at the [facility]. Appointment given on December 24, 2016, at 11 a.m. 2. Medications given including Prozac 20 mg q.a.m., one month supply, no refills. Reason for usage: Antidepressant. 3. Continuation of BuSpar 10 mg b.i.d., one month supply, no refills. Reason for usage: Anxiety. 4. Caution was expressed for any potential prescriptions of pain management, including Percocet or benzodiazepines due to the patient's highly addictive and malingering type behaviors. Patient was encouraged to look at possible referral to pain management specialty clinics, however, the patient has declined at this time. YAS[facility]
== END 2016-12-10 13:55 | disposition home or self-care (01) | DRG 885 ==
LOC: SED 18:25 → MHC 22:45
PROVIDERS: ADMIT Psychiatry & Neurology Psychiatry; ATTEND Psychiatry & Neurology Psychiatry
DX: F33.2 Major depressive disorder, recurrent severe without psychotic features (principal); R45.851 Suicidal ideations; F17.200 Nicotine dependence, unspecified, uncomplicated; F45.41 Pain disorder exclusively related to psychological factors; Z76.5 Malingerer [conscious simulation]; Z91.5 Personal history of self-harm